=== PATIENT | female | born 1985 | race Caucasian/White ===

== ENCOUNTER 2024-07-10 09:41 | Emergency (ER) | payer OTHER, SELFPAY ==
[2024-07-10 09:42] VITALS: BP 165/101
[2024-07-10 10:49] VITALS: BMI 19.9
[2024-07-10 10:54] VITALS: BP 153/97
--- NOTE | 2024-07-10 10:56 | ED.GENMED ---
History of Present Illness
General
Chief Complaint: Back Pain
Source: patient
Exam Limitations: none
Time Seen by Provider: 07/10/24 10:33
History of Present Illness
History of Present Illness:
39-year-old female otherwise healthy presents with ongoing lower back discomfort with change in bowel habits. She notes she has been straining to have bowel movements the shape of her stool is changed. She denies any known injury. Is been going
on for about 2 months. Tylenol helps somewhat. She thought she was constipated has been taking MiraLAX for the past week without significant relief of her symptoms. No vomiting or fever. No perianal anesthesia. No bowel or bladder dysfunction
otherwise. She has been ambulatory.
Past History
Past History
ED Past Medical History: None
ED Past Surgical History: Orthopedic (Left patella surgey)
Social History
Personal:
Living: with family
Employment: Not employed
Phy Exam
Physical Exam
Physical Exam:
General: Well-appearing female no acute respiratory distress
HEENT: Normocephalic atraumatic
Heart: Regular rate and rhythm no murmurs
Lungs: Clear no wheeze
Musculoskeletal exam: Patient is tender over the lumbar sacral junction. She has slight lower abdominal tenderness as well
Neurologic: Normal gait good strength in the lower extremities
Course
Orders/Labs/Results
Orders:
Orders
07/10/24 10:53
Test Result ONCE
07/10/24 10:54
CT Abd/pelvis W Iv Cont Urgent
Comment:
Reason For Exam: back and lower abdominal pain
07/10/24 11:02
Complete Blood Count/With Diff Urgent
Comprehensive Metabolic Panel Urgent
HCG, Serum Qualitative Screen Urgent
Urinalysis Reflex To Culture Urgent
Date Specimen was Collected: 07/10/24
Time Specimen was Collected: 10:55
Urine Microscopic Reflex Cult Urgent
Abnormal Lab Results
07/10/24
11:02
WBC 10.9 H 10^3/uL
(4.8-10.8)
MPV 10.5 H fL
(7.4-10.4)
Absolute Neuts (auto) 9.2 H 10^3/uL
(1.4-6.5)
Neutrophils % 84.1 H %
(42.2-75.2)
Lymphocytes % 11.5 L %
(20.5-51.1)
Albumin 5.3 H g/dl
(3.5-5.0)
Ur Occult Blood Reflex Trace A
(Negative)
07/10/24 11:02
07/10/24 11:02
Vital Signs
Initial and Last Documented VS:
Initial Vital Signs
Temp Pulse Resp BP Pulse Ox
99.0 F 114 16 165/101 100
07/10/24 09:42 07/10/24 09:42 07/10/24 09:42 07/10/24 09:42 07/10/24 09:42
Last Documented Vital Signs
Temp Pulse Resp BP Pulse Ox
99.0 F 87 16 153/97 100
07/10/24 09:42 07/10/24 10:54 07/10/24 10:54 07/10/24 10:54 07/10/24 10:54
MDM/Problems Addressed
Differential Diagnosis Includes:
Low back pain with abdominal discomfort. Question constipation versus degenerative disc disease versus lumbar strain. No concerning findings on history or exam consistent with cauda equina. No fever factious source.
Labs pending will order CAT scan
*Critical Care Note
Total Time (30-74mins, 75-104mins- exclusive of procedures): Not Applicable
Update Note
Update Note:
CT of the abdomen negative for acute finding. I suspect lumbar strain versus constipation. Recommends continued use of stool softeners and anti-inflammatories. Recommend follow-up with family doctor. Stable for discharge
ED Attending Note
-
Portions of this chart may have been created with voice recognition software.� Occasional wrong word or��sound alike� substitutions may have occurred due to the inherent limitations of voice recognition software.
Discharge Plan
Departure
Patient Disposition: Home (Routine Discharge)
Date of Disposition: 07/10/24
Time of Disposition: 13:03
Patient with high blood pressure during this ER visit?: No
Discharge Problem:
Low back pain
Instructions: Low Back Pain (DC)
Prescriptions:
No Action
MULTIPLE VITAMIN w/FE
1 tab PO DAILY
ibuprofen 600 MG tablet
600 mg PO Q4HPRN PRN (Reason: moderate pain/cramps) 0RF
Referrals:
UNKNOWN - PT DOES,NOT KNOW [Family Provider] -
Activity Restrictions/Additional Instructions:
Continue with Tylenol or ibuprofen for pain. You may continue using stool softeners if needed for constipation peer return if worse otherwise follow-up with your family
Interventions
Interventions:
*Risk Screen - Suicide Last Done: 07/10/24 09:42
*General Assessment Last Done: 07/10/24 10:49
*Neglect/Abuse Screening Last Done: 07/10/24 09:42
ED- Fall Risk Assessment Last Done: 07/10/24 10:49
*ED COVID-19 Vaccine History Last Done: 07/10/24 10:49
ED-Musculoskeletal Assessment Last Done: 07/10/24 10:49
Discharge Date and Time
Print Language: CYMRO
[2024-07-10 11:19] LABS: % Basophils 0.2 % (0-2); % Eosinophils 0.1 % (0-6); % Immature Granulocytes 0.3 % (0-0.5); % Lymphocytes 11.5 % (20.5-51.1); % Monocytes 3.8 % (1.7-9.3); % Neutrophils 84.1 % (42.2-75.2); Absolute Lymphocytes 1.3 10^3/uL (1.2-3.4); Absolute Monocytes 0.4 10^3/uL (0.1-0.6); Absolute Neutrophils 9.2 10^3/uL (1.4-6.5); Hematocrit 38.3 % (37.0-47.0); Hemoglobin 12.7 g/dL (12.0-16.0); Mean Corp Hgb Conc. 33.2 g/dL (33.0-37.0); Mean Corpuscular Volume 90.5 fL (81.0-99.0); Mean Platelet Volume 10.5 fL (7.4-10.4); Nucleated Red Blood Cells % 0 %; Platelet Count 260 10^3/uL (130-400); Red Blood Cell Count 4.23 10^6/uL (4.20-5.40); Red Cell Dist. Width 12.2 % (11.5-14.5); White Blood Cell Count 10.9 10^3/uL (4.8-10.8)
[2024-07-10 11:20] LABS: Urine Albumin Negative (Neg - Trace); Urine Bilirubin Negative (Negative); Urine Character Clear (Clear); Urine Color Yellow; Urine Glucose Negative (Negative); Urine Ketone Negative (Negative); Urine Leukocyte Negative (Negative); Urine Nitrite Negative (Negative); Urine Occult Blood Trace (Negative); Urine Urobilinogen Negative (Neg - 1+)
[2024-07-10 11:28] LABS: HCG, Serum Qualitative Screen Negative
[2024-07-10 11:34] LABS: ALT (SGPT) 13 U/L (0-35); AST (SGOT) 21 U/L (14-36); Albumin 5.3 g/dl (3.5-5.0); Alkaline Phosphatase 51 U/L (38-126); Blood Urea Nitrogen 15 mg/dl (7-17); Carbon Dioxide 25 mmol/L (22-30); Chloride 102 mmol/L (98-107); Estimated Creatinine Clearance 110 ml/min; Glucose 96 mg/dl (70-99); Potassium 4.4 mmol/L (3.5-5.1); Sodium 140 mmol/L (135-145); Total Bilirubin 0.4 mg/dl (0.2-1.3); Total Protein 8.1 g/dl (6.3-8.2); eGFR > 60.00
[2024-07-10 12:00] VITALS: BP 121/74
[2024-07-10 12:02] LABS: Urine Amorphous Seen; Urine Squamous Cell 16-20 /LPF (Few)
[2024-07-10 12:03] LABS: Urine Red Blood Cell 0-2 /HPF (0-2); Urine White Cell 0-2 /HPF (0-5)
[2024-07-10 13:50] VITALS: BP 124/74
--- NOTE | 2024-07-10 13:57 | EDRN ---
Reviewed discharge instructions with patient. Verbalized understanding.
== END 2024-07-10 13:55 | disposition home or self-care (01) ==
LOC: EMR 09:41
PROVIDERS: Physician Assistant; EMERGENCY PHYSICIAN Emergency Medicine
DX: M54.50 Low back pain, unspecified (principal)
CPT/HCPCS: 99284; 74177; 80053; 81003; 81015; 84703; 85025; Q9967

== ENCOUNTER → 2025-06-21 09:45 | Outpatient (REF) | payer OTHER, SELFPAY | LOC: HWWDC 09:45 | PROVIDERS: ATTENDING PHYSICIAN Nurse Practitioner Adult Health; FAMILY PHYSICIAN Physician Assistant | DX: Z12.31 Encounter for screening mammogram for malignant neoplasm of breast (principal) | CPT/HCPCS: 77063; 77067 ==